=== PATIENT | male | born 1960 | race Caucasian/White ===

== ENCOUNTER 2018-06-11 21:29 | Emergency (ER) | payer OTHER ==
[~2018-06-11] VITALS: Ht 177.8 cm; Wt 79.4 kg
[~2018-06-11 21:29] MED LIST: ALBU90OI6 INH; ALLO300 PO; AMIT75 PO; CHLO25 PO; DOXY100 PO; HYDACE5 PO; LISI10 PO; NAPR500 PO; OMEP20ER PO; PARO20 PO; VERA240ERB PO
[2018-06-11 22:25] LABS: Alanine Aminotransfer (ALT/SGP 31 U/L (12-78); Albumin, Blood 3.9 g/dL (3.4-5.0); Alk Phos 129 U/L (50-136); Anion Gap 14 mmol/L (6-16); Aspartate Aminotrans (AST/SGOT 38 U/L (12-37); Bilirubin, Total 0.5 mg/dL (0.1-1.0); Blood Urea Nitrogen 7 mg/dL (8-24); Bun/Creatinine Ratio 9.5 (12.0-20.0); CO2, Blood 21 mmol/L (21-32); Calcium, Blood 8.4 mg/dL (8.5-10.1); Chloride, Blood 102 mmol/L (98-108); Creatinine, Blood 0.74 mg/dL (0.60-1.20); Ethanol (Alcohol), Blood, Med 135 mg/dL; Globulin, Blood 4.1 g/dL (2.2-4.0); Glomerular Filtration Rate >60 (60-); Glucose, Blood 88 mg/dL (70-99); Potassium, Blood 3.7 mmol/L (3.5-5.5); Sodium, Blood 137 mmol/L (136-145)
[2018-06-12] MEDS ORDERED: MORP15ER PO (13:53)
[2018-06-12] MEDS ORDERED: VICODIN 5-3001 EACH PO (13:54)
[2018-06-12] MEDS ORDERED: Mobic15 MG PO (17:11)
[2018-06-12] MEDS ORDERED: MOTION RELIEF25 MG PO (17:12)
[2018-06-12] MEDS ORDERED: METO25 PO (17:13)
[2018-06-13] MEDS ORDERED: Amitriptyline150 MG PO (16:39)
[2018-06-13] MEDS ORDERED: ACID REDUCER20 MG PO (16:39)
== END 2018-06-12 | disposition home or self-care (01) ==
LOC: ER 21:29
PROVIDERS: Emergency Medicine
DX: F10.129 Alcohol abuse with intoxication, unspecified (principal); S09.90XA Unspecified injury of head, initial encounter; F17.200 Nicotine dependence, unspecified, uncomplicated; Z88.8 Allergy status to other drugs, medicaments and biological substances; Z79.899 Other long term (current) drug therapy; Y90.6 Blood alcohol level of 120-199 mg/100 ml; W18.30XA Fall on same level, unspecified, initial encounter
CPT/HCPCS: 36415; 70450; 80053; 93005; 93010; 99284-25; G0480

== ENCOUNTER 2018-06-12 13:40 | Inpatient (IN) | payer OTHER ==
[~2018-06-12] VITALS: Ht 180.3 cm; Wt 80.3 kg
[2018-06-12] MEDS ORDERED: MORP15ER PO (13:53)
[2018-06-12] MEDS ORDERED: VICODIN 5-3001 EACH PO (13:54)
[2018-06-12 14:37] LABS: Alanine Aminotransfer (ALT/SGP 32 U/L (12-78); Albumin, Blood 4.1 g/dL (3.4-5.0); Alk Phos 128 U/L (50-136); Anion Gap 10 mmol/L (6-16); Aspartate Aminotrans (AST/SGOT 46 U/L (12-37); Bilirubin, Total 0.9 mg/dL (0.1-1.0); Blood Urea Nitrogen 11 mg/dL (8-24); Bun/Creatinine Ratio 14.2 (12.0-20.0); CO2, Blood 27 mmol/L (21-32); Calcium, Blood 8.8 mg/dL (8.5-10.1); Chloride, Blood 99 mmol/L (98-108); Creatinine, Blood 0.78 mg/dL (0.60-1.20); Ethanol (Alcohol), Blood, Med <3 mg/dL; Globulin, Blood 4.1 g/dL (2.2-4.0); Glomerular Filtration Rate >60 (60-); Glucose, Blood 97 mg/dL (70-99); Potassium, Blood 3.9 mmol/L (3.5-5.5); Sodium, Blood 136 mmol/L (136-145); Total Protein, Blood 8.2 g/dL (6.4-8.2)
[2018-06-12 14:54] LABS: BASOPHILS ABSOLUTE AUTO 0.04 K/mm3 (0.00-0.23); BASOPHILS PERCENT AUTO 0 % (0-2); EOSINOPHILS ABSOLUTE AUTO 0.01 K/mm3 (0.00-0.68); EOSINOPHILS PERCENT AUTO 0 % (0-6); Hematocrit 39.5 % (37.0-53.0); Hemoglobin 13.6 g/dL (13.5-17.5); IMMATURE GRAN ABSOLUTE AUTO 0.05 K/mm3 (0.00-0.10); IMMATURE GRAN PERCENT AUTO 1 % (0-1); LYMPHOCYTES ABSOLUTE AUTO 1.07 K/mm3 (0.84-5.20); LYMPHOCYTES PERCENT AUTO 10 % (21-46); MONOCYTES ABSOLUTE AUTO 1.16 K/mm3 (0.16-1.47); MONOCYTES PERCENT AUTO 11 % (4-13); Mean Corpuscular HGB 34.7 pg (26.0-34.0); Mean Corpuscular HGB Conc 34.4 g/dL (31.5-36.5); Mean Corpuscular Volume 101 fL (80-100); Mean Platelet Volume 9.8 fL (9.1-12.4); NEUTROPHILS ABSOLUTE AUTO 7.94 K/mm3 (1.96-9.15); NEUTROPHILS PERCENT AUTO 77 % (41-73); Platelet Count 130 K/mm3 (150-400); RDW Coefficient Variation 13.8 % (11.7-14.2); RDW Standard Deviation 51.1 fL (35.1-46.3); Red Blood Cell Count 3.92 M/mm3 (4.30-5.90); White Blood Cell Count 10.27 K/mm3 (4.00-11.30)
[2018-06-12 15:24] LABS: Creatine Kinase MB 7.5 ng/mL (0.0-3.6); Creatine Kinase MB Index 0.5 (0.0-4.0)
[2018-06-12] MEDS ORDERED: Mobic15 MG PO (17:11)
[2018-06-12] MEDS ORDERED: MOTION RELIEF25 MG PO (17:12)
[2018-06-12] MEDS ORDERED: METO25 PO (17:13)
[2018-06-12 19:09] LABS: Source, Urine Clean Catch
[2018-06-12 19:12] LABS: Appearance, Urine Clear (Clear); Bilirubin, Urine Neg (Neg); Blood, Urine 1+ (Neg); Color, Urine Yellow (P-Yellow); Glucose Qualitative, Urine Neg (Neg); Ketones, Urine 2+ (Neg); Leukocyte Esterase, Urine Neg (Neg); Nitrite, Urine Neg (Neg); Protein, Urine 1+ (Neg); Urobilinogen, Urine NORM (Normal)
[2018-06-12 19:27] LABS: U Amphetamine Screen Not Detected; U Barbituate Screen Not Detected; U Benzodiazapine Screen Not Detected; U Buprenorphine Screen Not Detected; U Cannabinoids Screen Not Detected; U Cocaine Screen Not Detected; U Methadone Screen Not Detected; U Methamphetamine Screen Not Detected; U Opiates Screen Not Detected; U Oxycodone Screen Not Detected; U Phencyclidine Screen Not Detected; U Propoxyphene Screen Not Detected
[2018-06-12 19:28] LABS: Bacteria Rare /hpf; Red Blood Cells, Urine 0-2 /hpf (0-2); Squamous Epithelial Cells Rare /hpf (Few); White Blood Cells, Urine 0-2 /hpf (0-5)
[2018-06-13 04:26] LABS: BASOPHILS ABSOLUTE AUTO 0.05 K/mm3 (0.00-0.23); BASOPHILS PERCENT AUTO 1 % (0-2); EOSINOPHILS ABSOLUTE AUTO 0.13 K/mm3 (0.00-0.68); EOSINOPHILS PERCENT AUTO 2 % (0-6); Hematocrit 38.4 % (37.0-53.0); Hemoglobin 13.1 g/dL (13.5-17.5); IMMATURE GRAN ABSOLUTE AUTO 0.03 K/mm3 (0.00-0.10); IMMATURE GRAN PERCENT AUTO 0 % (0-1); LYMPHOCYTES ABSOLUTE AUTO 2.23 K/mm3 (0.84-5.20); LYMPHOCYTES PERCENT AUTO 28 % (21-46); MONOCYTES PERCENT AUTO 11 % (4-13); Mean Corpuscular HGB 34.7 pg (26.0-34.0); Mean Corpuscular HGB Conc 34.1 g/dL (31.5-36.5); Mean Corpuscular Volume 102 fL (80-100); Mean Platelet Volume 9.7 fL (9.1-12.4); NEUTROPHILS ABSOLUTE AUTO 4.68 K/mm3 (1.96-9.15); NEUTROPHILS PERCENT AUTO 58 % (41-73); Platelet Count 128 K/mm3 (150-400); RDW Coefficient Variation 13.9 % (11.7-14.2); RDW Standard Deviation 52.6 fL (35.1-46.3); Red Blood Cell Count 3.78 M/mm3 (4.30-5.90); White Blood Cell Count 8.02 K/mm3 (4.00-11.30)
[2018-06-13 04:48] LABS: Anion Gap 8 mmol/L (6-16); Blood Urea Nitrogen 8 mg/dL (8-24); Bun/Creatinine Ratio 10.6 (12.0-20.0); CO2, Blood 27 mmol/L (21-32); Calcium, Blood 7.8 mg/dL (8.5-10.1); Chloride, Blood 104 mmol/L (98-108); Creatinine, Blood 0.76 mg/dL (0.60-1.20); Glomerular Filtration Rate >60 (60-); Glucose, Blood 95 mg/dL (70-99); Magnesium, Blood 2.1 mg/dL (1.6-2.4); Magnesium, Blood 2.2 mg/dL (1.6-2.4); Phosphorus, Blood 2.8 mg/dL (2.5-4.9); Potassium, Blood 3.5 mmol/L (3.5-5.5); Sodium, Blood 139 mmol/L (136-145); Troponin I 0.023 ng/mL (0.000-0.040)
[2018-06-13 04:50] LABS: Phosphorus, Blood 2.7 mg/dL (2.5-4.9); Thyroid Stimulating Hormone 0.907 uIU/mL (0.360-4.800)
[2018-06-13 05:02] LABS: Creatine Kinase MB 3.6 ng/mL (0.0-3.6); Creatine Kinase MB Index 0.4 (0.0-4.0)
[2018-06-13 16:10] LABS: BASOPHILS ABSOLUTE AUTO 0.04 K/mm3 (0.00-0.23); BASOPHILS PERCENT AUTO 0 % (0-2); EOSINOPHILS ABSOLUTE AUTO 0.14 K/mm3 (0.00-0.68); EOSINOPHILS PERCENT AUTO 2 % (0-6); Hematocrit 41.1 % (37.0-53.0); Hemoglobin 13.6 g/dL (13.5-17.5); IMMATURE GRAN ABSOLUTE AUTO 0.04 K/mm3 (0.00-0.10); IMMATURE GRAN PERCENT AUTO 0 % (0-1); LYMPHOCYTES ABSOLUTE AUTO 2.93 K/mm3 (0.84-5.20); LYMPHOCYTES PERCENT AUTO 32 % (21-46); MONOCYTES ABSOLUTE AUTO 0.87 K/mm3 (0.16-1.47); MONOCYTES PERCENT AUTO 10 % (4-13); Mean Corpuscular HGB 34.6 pg (26.0-34.0); Mean Corpuscular HGB Conc 33.1 g/dL (31.5-36.5); NEUTROPHILS ABSOLUTE AUTO 5.01 K/mm3 (1.96-9.15); NEUTROPHILS PERCENT AUTO 56 % (41-73); Platelet Count 143 K/mm3 (150-400); RDW Coefficient Variation 14.1 % (11.7-14.2); RDW Standard Deviation 54.6 fL (35.1-46.3); Red Blood Cell Count 3.93 M/mm3 (4.30-5.90); White Blood Cell Count 9.03 K/mm3 (4.00-11.30)
[2018-06-13 16:14] LABS: Mean Corpuscular Volume 105 fL (80-100)
[2018-06-13] MEDS ORDERED: Amitriptyline150 MG PO (16:39)
[2018-06-13] MEDS ORDERED: ACID REDUCER20 MG PO (16:39)
[2018-06-13 16:47] LABS: Creatine Kinase MB 2.6 ng/mL (0.0-3.6); Creatine Kinase MB Index 0.4 (0.0-4.0)
[2018-06-14 05:06] LABS: Anion Gap 10 mmol/L (6-16); Blood Urea Nitrogen 13 mg/dL (8-24); Bun/Creatinine Ratio 15.8 (12.0-20.0); CO2, Blood 24 mmol/L (21-32); Calcium, Blood 8.1 mg/dL (8.5-10.1); Chloride, Blood 105 mmol/L (98-108); Creatinine, Blood 0.82 mg/dL (0.60-1.20); Glomerular Filtration Rate >60 (60-); Glucose, Blood 89 mg/dL (70-99); Magnesium, Blood 1.9 mg/dL (1.6-2.4); Phosphorus, Blood 3.7 mg/dL (2.5-4.9); Potassium, Blood 3.8 mmol/L (3.5-5.5); Sodium, Blood 139 mmol/L (136-145)
== END 2018-06-16 19:01 | DRG 71 ==
LOC: ER 13:40 → PCU 13:41 → MEDS 17:04 → ICUW 18:47 → MEDS 06-13 11:08 → ICUW 06-13 13:57 → MEDS 06-13 16:29
PROVIDERS: Family Medicine; Physician Assistant
DX: G93.49 Other encephalopathy (principal); F10.231 Alcohol dependence with withdrawal delirium; M62.82 Rhabdomyolysis; I10 Essential (primary) hypertension; G47.00 Insomnia, unspecified; K21.9 Gastro-esophageal reflux disease without esophagitis; R53.81 Other malaise; F12.90 Cannabis use, unspecified, uncomplicated; W19.XXXA Unspecified fall, initial encounter; Z91.81 History of falling; Y92.239 Unspecified place in hospital as the place of occurrence of the external cause; F17.210 Nicotine dependence, cigarettes, uncomplicated
CPT/HCPCS: 36415; 51702; 70450; 80048; 80053; 81001; 82150; 82550; 82553; 83690; 83735; 84100; 84443; 84484; 85025; 90471; 90714; 93005; 93010; 94760; 96360; 96361; 97110; 97112; 97116; 97162; 97530; 99285-25; C9113; G0480; G8978; G8979; G8980; J0360; J2060; J3411; J3475; J3480; J7030; J7042

== ENCOUNTER 2018-11-30 12:03 | Emergency (ER) | payer OTHER ==
[~2018-11-30] VITALS: Ht 180.3 cm; Wt 79.4 kg
[~2018-11-30 12:03] MED LIST changes: +ACID REDUCER20 MG PO; +Amitriptyline150 MG PO; +B12; +METO25 PO; +MORP15ER PO; +MOTION RELIEF25 MG PO; +MULTI VITAMIN1 EACH PO; +Milk Of Ma400 MG/5 M PO; +Mobic15 MG PO; +VICODIN 5-3001 EACH PO
== END 2018-11-30 14:40 | disposition home or self-care (01) ==
LOC: ER 12:03
DX: H53.2 Diplopia (principal); I10 Essential (primary) hypertension; K21.9 Gastro-esophageal reflux disease without esophagitis; F17.210 Nicotine dependence, cigarettes, uncomplicated; Z87.828 Personal history of other (healed) physical injury and trauma; Z79.899 Other long term (current) drug therapy; Z88.5 Allergy status to narcotic agent
CPT/HCPCS: 70480; 99284-25

== ENCOUNTER 2019-02-03 13:34 | Emergency (ER) | payer OTHER ==
[~2019-02-03] VITALS: Ht 180.3 cm; Wt 83.9 kg
[2019-02-03 14:12] LABS: BASOPHILS ABSOLUTE AUTO 0.09 K/mm3 (0.00-0.23); BASOPHILS PERCENT AUTO 1 % (0-2); EOSINOPHILS ABSOLUTE AUTO 0.11 K/mm3 (0.00-0.68); EOSINOPHILS PERCENT AUTO 1 % (0-6); Hematocrit 43.8 % (37.0-53.0); Hemoglobin 15.5 g/dL (13.5-17.5); IMMATURE GRAN ABSOLUTE AUTO 0.05 K/mm3 (0.00-0.10); IMMATURE GRAN PERCENT AUTO 1 % (0-1); LYMPHOCYTES ABSOLUTE AUTO 2.33 K/mm3 (0.84-5.20); LYMPHOCYTES PERCENT AUTO 23 % (21-46); MONOCYTES ABSOLUTE AUTO 1.32 K/mm3 (0.16-1.47); MONOCYTES PERCENT AUTO 13 % (4-13); Mean Corpuscular HGB 34.4 pg (26.0-34.0); Mean Corpuscular HGB Conc 35.4 g/dL (31.5-36.5); Mean Corpuscular Volume 97 fL (80-100); Mean Platelet Volume 9.4 fL (9.1-12.4); NEUTROPHILS ABSOLUTE AUTO 6.25 K/mm3 (1.96-9.15); NEUTROPHILS PERCENT AUTO 62 % (41-73); Platelet Count 229 K/mm3 (150-400); RDW Coefficient Variation 12.6 % (11.7-14.2); RDW Standard Deviation 45.1 fL (35.1-46.3); White Blood Cell Count 10.15 K/mm3 (4.00-11.30)
[2019-02-03 14:37] LABS: Alanine Aminotransfer (ALT/SGP 35 U/L (12-78); Albumin, Blood 3.7 g/dL (3.4-5.0); Albumin/Globulin Ratio 0.9 (0.8-1.8); Alk Phos 105 U/L (50-136); Anion Gap 14 mmol/L (6-16); Aspartate Aminotrans (AST/SGOT 26 U/L (12-37); Bilirubin, Total 0.7 mg/dL (0.1-1.0); Blood Urea Nitrogen 5 mg/dL (8-24); CO2, Blood 21 mmol/L (21-32); Calcium, Blood 8.5 mg/dL (8.5-10.1); Chloride, Blood 96 mmol/L (98-108); Creatinine, Blood 1.01 mg/dL (0.60-1.20); Globulin, Blood 4.2 g/dL (2.2-4.0); Glomerular Filtration Rate >60 (60-); Glucose, Blood 94 mg/dL (70-99); Potassium, Blood 3.8 mmol/L (3.5-5.5); Sodium, Blood 131 mmol/L (136-145); Total Protein, Blood 7.9 g/dL (6.4-8.2)
[2019-02-03] MEDS ORDERED: Lopressor 25 mg25 MG PO (14:53)
[2019-02-03] MEDS ORDERED: Mobic15 MG PO (14:53)
== END 2019-02-03 16:57 | disposition home or self-care (01) ==
LOC: ER 13:34
PROVIDERS: Emergency Medicine
DX: R25.1 Tremor, unspecified (principal); F10.10 Alcohol abuse, uncomplicated; I10 Essential (primary) hypertension; K21.9 Gastro-esophageal reflux disease without esophagitis; F17.210 Nicotine dependence, cigarettes, uncomplicated; Z88.5 Allergy status to narcotic agent; Z79.899 Other long term (current) drug therapy
CPT/HCPCS: 36415; 80053; 85025; 93005; 93010; 96360; 96361; 99285-25; J7030

== ENCOUNTER 2019-08-11 11:53 | Emergency (ER) | payer OTHER ==
[~2019-08-11] VITALS: Ht 180.3 cm; Wt 81.7 kg
[~2019-08-11 11:53] MED LIST changes: +Lopressor 25 mg25 MG PO
== END 2019-08-11 13:14 | disposition home or self-care (01) ==
LOC: ER 11:53
DX: R55 Syncope and collapse (principal); F17.210 Nicotine dependence, cigarettes, uncomplicated; Z72.89 Other problems related to lifestyle
CPT/HCPCS: 82947; 93005; 93010; 99285-25

== ENCOUNTER 2019-10-15 12:33 | Emergency (ER) | payer OTHER ==
[~2019-10-15] VITALS: Ht 180.3 cm; Wt 81.7 kg
== END 2019-10-15 13:40 | disposition home or self-care (01) ==
LOC: ER 12:33
DX: S76.911A Strain of unspecified muscles, fascia and tendons at thigh level, right thigh, initial encounter (principal); S86.911A Strain of unspecified muscle(s) and tendon(s) at lower leg level, right leg, initial encounter; F17.210 Nicotine dependence, cigarettes, uncomplicated; X50.1XXA Overexertion from prolonged static or awkward postures, initial encounter
CPT/HCPCS: 73552; 99283-25

== ENCOUNTER 2020-01-07 17:14 | Inpatient (IN) | payer OTHER ==
[~2020-01-07] VITALS: Ht 180.3 cm; Wt 73.9 kg
[~2020-01-07 17:14] MED LIST changes: +B-121000 MC3 PO; -B12
[2020-01-07 18:10] LABS: Alanine Aminotransfer (ALT/SGP 31 U/L (12-78); Albumin, Blood 3.9 g/dL (3.4-5.0); Albumin/Globulin Ratio 0.8 (0.8-1.8); Alk Phos 135 U/L (50-136); Anion Gap 8 mmol/L (6-16); Aspartate Aminotrans (AST/SGOT 36 U/L (12-37); Bilirubin, Total 0.9 mg/dL (0.1-1.0); Blood Urea Nitrogen 5 mg/dL (8-24); Bun/Creatinine Ratio 6.4 (12.0-20.0); CO2, Blood 23 mmol/L (21-32); Calcium, Blood 9.5 mg/dL (8.5-10.1); Chloride, Blood 100 mmol/L (98-108); Creatinine, Blood 0.78 mg/dL (0.60-1.20); Ethanol (Alcohol), Blood, Med 20 mg/dL; Globulin, Blood 4.8 g/dL (2.2-4.0); Glomerular Filtration Rate >60 (60-); Glucose, Blood 77 mg/dL (70-99); Potassium, Blood 4.4 mmol/L (3.5-5.5); Sodium, Blood 131 mmol/L (136-145); Total Protein, Blood 8.7 g/dL (6.4-8.2)
[2020-01-07 19:09] LABS: BASOPHILS ABSOLUTE AUTO 0.07 K/mm3 (0.00-0.23); BASOPHILS PERCENT AUTO 1 % (0-2); EOSINOPHILS ABSOLUTE AUTO 0.08 K/mm3 (0.00-0.68); EOSINOPHILS PERCENT AUTO 1 % (0-6); Hematocrit 50.6 % (37.0-53.0); Hemoglobin 18.1 g/dL (13.5-17.5); IMMATURE GRAN ABSOLUTE AUTO 0.03 K/mm3 (0.00-0.10); IMMATURE GRAN PERCENT AUTO 0 % (0-1); LYMPHOCYTES ABSOLUTE AUTO 2.54 K/mm3 (0.84-5.20); LYMPHOCYTES PERCENT AUTO 25 % (21-46); MONOCYTES ABSOLUTE AUTO 0.74 K/mm3 (0.16-1.47); MONOCYTES PERCENT AUTO 7 % (4-13); Mean Corpuscular HGB 33.8 pg (26.0-34.0); Mean Corpuscular HGB Conc 35.8 g/dL (31.5-36.5); Mean Corpuscular Volume 94 fL (80-100); Mean Platelet Volume 9.8 fL (9.1-12.4); NEUTROPHILS ABSOLUTE AUTO 6.83 K/mm3 (1.96-9.15); NEUTROPHILS PERCENT AUTO 66 % (41-73); Platelet Count 172 K/mm3 (150-400); RDW Coefficient Variation 12.1 % (11.7-14.2); RDW Standard Deviation 42.6 fL (35.1-46.3); Red Blood Cell Count 5.36 M/mm3 (4.30-5.90); White Blood Cell Count 10.29 K/mm3 (4.00-11.30)
--- NOTE | 2020-01-07 22:45 | NUR ---
ADMIT NOTE PATIENT VERY AGITATED AND RESTLESS UPON ADMIT TO THE FLOOR. PATIENT VERY FIDGITY AND CONSTANTLY ATTEMPTING TO SIT UP AND SWING LEGS OVER THE EGE OF THE BED. PATIENT MEDICATED ACCORDINGLY. PATIENT SETTLED IN AND ORIENTED TO THE ROOM, UNIT, AND CALL LIGHT.
--- NOTE | 2020-01-07 23:24 | NUR ---
UPDATE NURSE PRACTIONER BRENNAN FRASER NOTIFIED OF ELEVATED BLOOD PRESSURE. NO NEW ORDERS RECEIVED.
--- NOTE | 2020-01-07 23:24 | NUR ---
UPDATE DR SANTORO NOTIFIED OF RASH ON PATIENT'S BACK. STATED HE WILL COME ASSESS RASH IN A LITTLE WHILE.
--- NOTE | 2020-01-07 23:55 | NUR ---
DR YVAN SNATORO IN TO ASSESS PATIENT'S RASH. ORDERS RECEIVED.
[2020-01-08 04:46] LABS: Alanine Aminotransfer (ALT/SGP 21 U/L (12-78); Albumin, Blood 3.1 g/dL (3.4-5.0); Albumin/Globulin Ratio 0.8 (0.8-1.8); Alk Phos 112 U/L (50-136); Anion Gap 9 mmol/L (6-16); Aspartate Aminotrans (AST/SGOT 17 U/L (12-37); Bilirubin, Total 0.9 mg/dL (0.1-1.0); Blood Urea Nitrogen 4 mg/dL (8-24); Bun/Creatinine Ratio 7.1 (12.0-20.0); CO2, Blood 25 mmol/L (21-32); Calcium, Blood 8.3 mg/dL (8.5-10.1); Chloride, Blood 103 mmol/L (98-108); Creatinine, Blood 0.56 mg/dL (0.60-1.20); Globulin, Blood 3.7 g/dL (2.2-4.0); Glomerular Filtration Rate >60 (60-); Glucose, Blood 128 mg/dL (70-99); Magnesium, Blood 2.4 mg/dL (1.6-2.4); Phosphorus, Blood 2.9 mg/dL (2.5-4.9); Potassium, Blood 3.4 mmol/L (3.5-5.5); Sodium, Blood 137 mmol/L (136-145); Total Protein, Blood 6.8 g/dL (6.4-8.2)
--- NOTE | 2020-01-08 05:37 | NUR ---
SHIFT SUMMARY PATIENT APPEARED TO SLEEP ON AND OFF THROUGHOUT THE REST OF THE NIGHT. PATIENT WILL PERIODICALLY BECOME VERY RESTLESS AND AGITATED WHILE ATTEMPTING TO SIT UP. PATIENT VERY FIDGTY WHEN AWAKE. PATIENT DIFFICULT TO UNDERSTAND WHEN SPEAKING. BED ALARM ON FOR SAFETY. PATIENT MEDICATED PER SHELLEYWA. PATIENT CURRENTLY APPEARS TO BE SLEEPING WELL. PATIENT MOVING SELF ABOUT IN THE BED. WILL CONTINUE TO MONITOR PATIENT AND REPORT TO ONCOMING RN.
--- NOTE | 2020-01-08 17:52 | NUR ---
SHIFT SUMMARY PT ALERT AND ORIENTED THIS AFTERNOON. VS STABLE. O2 SATS REMAIN ABOVE 90% ON RA. BP STABLE. HR NSR. PT DENIES ANY PAIN. PT REPOSITIONING HIMNSELF IN THE BED INDEPENDENTLY. MONITORING CIWA. ORDERS CHANGED TO MEDICAL STATUS THIS AFTERNOON. DR. ALMANZA NOTIFIED OF +BLOOD CULTURES AND NEW ORDERS PROVIDED. WILL CONTINUE TO MONITOR AND REPORT TO ONCOMING RN. CALL LIGHT IN REACH
--- NOTE | 2020-01-08 18:26 | NUR ---
PT IS ALERT AND ORIENTED TO SELF WITH SOME CONFUSION. PT IS TURNED Q 2 HRS. PT TURNS WELL IN BED BY SELF. PT IS MONITORED FOR ETOH WITHDRAWL, CIWA'S HAVE BEEN PERFORMED THROUGHOUT THE SHIFT. PT HAS A LOW CIWA SCORE OF 0 AT 1625. PT HAS RASH COVERING LOWER BACK AND BUTTOCKS. PT HAS NOT VOIDED URINE SINCE EARLY AFTERNOON, BLADDER SCAN SHOWED 370 ML OF URINE IN THE BLADDER. PT WAS UNABLE TO VOID INTO URINAL. PT IS CALM AND COOPERATIVE WITH CARE. CALL LIGHT IS WITHIN REACH.
[2020-01-09 04:28] LABS: Anion Gap 4 mmol/L (6-16); Blood Urea Nitrogen 7 mg/dL (8-24); Bun/Creatinine Ratio 9.7 (12.0-20.0); CO2, Blood 28 mmol/L (21-32); Calcium, Blood 8.4 mg/dL (8.5-10.1); Chloride, Blood 106 mmol/L (98-108); Creatinine, Blood 0.73 mg/dL (0.60-1.20); Glomerular Filtration Rate >60 (60-); Glucose, Blood 86 mg/dL (70-99); Phosphorus, Blood 3.6 mg/dL (2.5-4.9); Potassium, Blood 4.2 mmol/L (3.5-5.5); Sodium, Blood 138 mmol/L (136-145)
--- NOTE | 2020-01-09 05:40 | NUR ---
SHIFT SUMMARY / ASSUMED CARE AT 1900. VERY LETHARGIC AT THAT TIME AND WITH IN ABOUT 2 HR AND ALL THE REPOSITIONING AND ASSIST EXPECTED , MORE AWAKE AND GARBLED CONVERSING, FORMS WORDS BETTER AWAKE AND ANY SLURR SEEMS TO BE RELATED TO FEW TEETH IN MOUTH. ATTEMPTED A FEW TIMES THRU NOC TO USE STRICT ASPIRATION PRECAUTIONS AFTER GIVING PT A SANDWICH TO FEED SELF WHEN FULLY AWAKE ABOUT 2200, AND BEGAN TO CHOKE ON THIS FOOD ITEM. LATER FEEDING SOFT AND SIPS AND STILL NOTED THERE WAS SOME MILD COUGHING WHEN HOB HIGH FOWLERS AND SUPERVISION OR STAFF FEEDING PT. CALLS OUT MANY TIMES THRU NOC DEMANDING FOOD. MORE AWAKE BETWEEN DOZING AND MOSTSLY ORIENTED AND SPECIFIC ACCURATE DISCUSSION ABOUT SURROUNDINGS. ENC TO TURN SELF WITH Q 2 HR REPOSITIONING. VERY STIFF. NEURO CHECK AND NO NOTED DEFICIT IN EXTREMITIES . WILL SUGGEST SPEECH EVAL AND CLEARANCE. NO MD CALL W/ + BC PER DAY STAFF MD AWARE AND ABX STARTED. AWARE OF OF NEED TO VOID AND URINAL HELD BY STAFF PER PT REQUEST AND VOIDED 500 ML AT 0030. NO FURTHER URGE TO VOID AND NO BLADDER SCAN DONE AT THIS TIME, VERY LIMITED FLUIDS TONIGHT DUE TO SWALLOW PRECAUTIONS. CALM AND COOPERATIVE TONIGHT, JUST EASILY IRRITATED ABOUT NOT BEING ABLE TO EAT ON DEMAND, GOOD APPETITE APPARENT AND NO NAUSEA/ CIWA ABOUT 2-4. RASH MOSTLY AT LT HIP UNCHANGED THRU NOC NOTED PRIOR. MOSTLY ORIENTED CONT. DESIRES TO CALL FAMILY AND HAVE THEM PICK HIM UP . SOCIAL SERVICE NEEDS TO EVAL. NOT CHARTED EARLIER, BUT REPORTS MID CALF TO FEET ARE NUMB AND THIS IS NORMAL. SOMETIMES HIS ANTERIOR THIGHS ACHE. NO PAIN MEDS REQUIRED
--- NOTE | 2020-01-09 13:02 | NUR ---
SHIFT REPORT PT HAD SPEECH EVAL ON 01/08, DETERMINED THAT PT WAS IN NEED OF MECHANICAL SOFT DIET WITH FEW DISTRACTIONS DURING MEAL TIME FOR SWALLOW PRECAUTIONS. PT DENIES PAIN. PATIENT IS ALERT AND ORIENTED TO SELF WITH CONFUSION ON LOCATION. PT IS CALM AND COOPERATIVE WITH CARE. VS STABLE. PT IS MEDICAL STATUS WITH NO TELEMETRY. PT WAS TRANSFERRED TO MEDICAL FLOOR BY BED. REPORT WAS GIVEN TO MEDICAL FLOOR NURSE PRIOR TO TRANSFER.
[2020-01-09 16:47] LABS: Vancomycin, Trough 17.5 ug/mL (5.0-10.0)
--- NOTE | 2020-01-09 17:46 | NUR ---
PT TRANSFERRED FROM PCU. PLEASNT SINCE HERE. CONTINUES GARBLED SPERITU. SITTING STRAIGHT UP TO EAT MECH SOFT DIET. PLACED CONDOM CATH TO ASSIST IN NOT URINATING SELF TODAY. WILL SEE IF THIS HELPS SKIN. NO OTHER CONCERNS AT THIS TIME. BED IN LOW POSITION, CALL LITE IN REACH, BED ALARM ON FOR SAFETY
--- NOTE | 2020-01-09 18:30 | NUR ---
PAOLO COOLTZ CALLED, SISTER. PT SIGHNED AUTH FORM TO SPEAK TO HER. 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 IS DISABLED AT HOME. IS NOT AT THIS TIME. THIS IS FROM 25 YEARS AGO. WAS A AN[employer] MANY YEARS AGO. LAST MONTH FELL WHEN INTOXICATED, HIT HEAD TWO DIFFERENT OCCATIONS. STATES HAS DECREASED FUNCTIONALITY SINCE LAST MONTH. IS HEAVY DRINKER WHEN CAN GET SOMEONE TO GO GET FOR HIM. REPORTED TO DR ALMANZA.
--- NOTE | 2020-01-10 02:58 | NUR ---
Patients IV infiltrated left hand and IV removed. Ice pack placed for comfort and to decrease swelling. New IV started Right forearm on second attempt with Ultrasound vein finder. Good blood return noted at time of insertion. IV Vancomycin started at that time, and within 5 minutes, the new IV infiltrated. This was DC'd and Hospitalist was notified. Per yahir BHAGAT to restart IV medications in AM after new IV (or PICC) inserted.
--- NOTE | 2020-01-10 06:33 | NUR ---
SOCIAL WORK LECTURER SUMMARY Patient was awake until approx 0500. Very pleasant to deal and cooperative to work with, but very anxious and and determined to leave hospital today. Spoke with night hospitalist to inform her that Two of his IV accesses had infiltrated. MD agreed to hold his IV meds until he could have an IV started today. No complaints of pain with exception of left hand and right forearm (sites of Previous IV's)
--- NOTE | 2020-01-10 08:48 | NUR ---
MAXIPIME THE NEW ORDER MAXIPIME 2000MG Q12 WAS AKNOWLEDGED BY CROP OR GRAIN FARMER, EARLENE. THIS RN LOOKED OVER ORDER AND AKNOWLEDGED THE NEW ORDER FROM DR. ALMANZA AND IT IS A CHANGE IN FREQUENCY.
[2020-01-10 12:26] LABS: Source, Urine Clean Catch
[2020-01-10 12:29] LABS: Bilirubin, Urine Neg (Neg); Blood, Urine 1+ (Neg); Glucose Qualitative, Urine Neg (Neg); Ketones, Urine 1+ (Neg); Leukocyte Esterase, Urine Neg (Neg); Nitrite, Urine Neg (Neg); Protein, Urine Neg (Neg); Urobilinogen, Urine NORM (Normal)
[2020-01-10 12:35] LABS: Appearance, Urine Clear (Clear); Color, Urine Yellow (P-Yellow)
[2020-01-10 12:36] LABS: Bacteria Not Seen /hpf; Red Blood Cells, Urine 0-2 /hpf (0-2); Squamous Epithelial Cells Not Seen /hpf (Few); White Blood Cells, Urine 0-2 /hpf (0-5)
--- NOTE | 2020-01-10 16:20 | NUR ---
SHIFT SUMMARY PT AMBULATED THE HALLS WITH PT. ECHO PERFORMED THIS EVENING, AWAITING RESULTS. DR. HOUGH CONSULTED WITH PT THIS EVENING. GUARDIANSHIP LETTER PLACED IN PT CHART AND CAR TOP BOLTER WAS NOTIFIED. PT DENIES PAIN OR SOB THIS SHIFT. NO ACUTE CHANGES. PT IN BED, CALL LIGHT IN REACH.
[2020-01-10 17:01] LABS: Vancomycin, Trough 16.6 ug/mL (5.0-10.0)
[2020-01-11 05:36] LABS: Anion Gap 3 mmol/L (6-16); Blood Urea Nitrogen 9 mg/dL (8-24); Bun/Creatinine Ratio 13.1 (12.0-20.0); CO2, Blood 29 mmol/L (21-32); Calcium, Blood 8.5 mg/dL (8.5-10.1); Chloride, Blood 108 mmol/L (98-108); Creatinine, Blood 0.69 mg/dL (0.60-1.20); Glomerular Filtration Rate >60 (60-); Glucose, Blood 92 mg/dL (70-99); Sodium, Blood 140 mmol/L (136-145)
--- NOTE | 2020-01-11 07:04 | NUR ---
SHIFT SUMMARY PATIENT A&O X 3 OVERNIGHT. VERY PLEASANT TO WORK WITH, SLEPT WELL OVERNIGHT. IV PATENT AND FLUSHED. BED IN LOWEST POSITION WITH WHEELS LOCKED AND ALARM ON. CALL LIGHT WITHIN REACH. REPORT GIVEN TO ONCOMING RN.
--- NOTE | 2020-01-11 19:25 | NUR ---
alert and orintated to self, place and time confused/forgetful or willful, not aware of own limitations, tended to over estimate ability and forget own limitations, call light in reach, rm air, saline locked, shared bsr with noc nurse and pt
--- NOTE | 2020-01-12 04:59 | NUR ---
SHIFT SUMMARY PATIENT SLEPT WELL OVERNIGHT AND HAD MINIMAL NEEDS. IV PATENT AND FLUSHED. BED IN LOWEST POSITION WITH WHEELS LOCKED AND ALARM ON. CALL LIGHT WITHIN REACH. REPORT GIVEN TO ONCOMING RN.
--- NOTE | 2020-01-12 10:41 | NUR ---
ordered ct scan, radiology canceled order, nurse informed dr brenda stated reasons mri not acceptable, nurse called radiology, radiology asked that the dr's consult, rn called and asked that she contact the radiology .
--- NOTE | 2020-01-12 19:35 | NUR ---
alert orintated to self, location and date, confused at time, impulsive and anxious, no IV, rm air, call light in reach, mri completed, bsr shared with nurse and pt
--- NOTE | 2020-01-13 04:11 | NUR ---
KITCHEN CHEF SUMMARY Patient actually slept well from 2300 till 0400. minimal complaints of discomfort in neck and back (chronic) were resolved with ice to neck and APAP. Much more alert than previous nights. Still requires lots of cueing to remain on track during activities with staff.
[2020-01-13 08:42] LABS: BASOPHILS ABSOLUTE AUTO 0.07 K/mm3 (0.00-0.23); BASOPHILS PERCENT AUTO 1 % (0-2); EOSINOPHILS ABSOLUTE AUTO 0.15 K/mm3 (0.00-0.68); EOSINOPHILS PERCENT AUTO 2 % (0-6); Hematocrit 47.3 % (37.0-53.0); Hemoglobin 15.9 g/dL (13.5-17.5); IMMATURE GRAN ABSOLUTE AUTO 0.02 K/mm3 (0.00-0.10); IMMATURE GRAN PERCENT AUTO 0 % (0-1); LYMPHOCYTES ABSOLUTE AUTO 3.24 K/mm3 (0.84-5.20); LYMPHOCYTES PERCENT AUTO 47 % (21-46); MONOCYTES ABSOLUTE AUTO 0.57 K/mm3 (0.16-1.47); MONOCYTES PERCENT AUTO 8 % (4-13); Mean Corpuscular HGB 33.8 pg (26.0-34.0); Mean Corpuscular HGB Conc 33.6 g/dL (31.5-36.5); Mean Platelet Volume 10.2 fL (9.1-12.4); NEUTROPHILS PERCENT AUTO 42 % (41-73); Platelet Count 170 K/mm3 (150-400); RDW Coefficient Variation 12.5 % (11.7-14.2); RDW Standard Deviation 47.2 fL (35.1-46.3); White Blood Cell Count 6.95 K/mm3 (4.00-11.30)
[2020-01-13 08:51] LABS: Mean Corpuscular Volume 101 fL (80-100)
--- NOTE | 2020-01-13 18:23 | NUR ---
SHIFT SUMMARY PT AXO, PLEASANT AND COOPERATIVE WITH CARE. SLURRED SPEECH. EAGER TO GO HOME. VSS. PATIENT WORKED WITH PHYSICAL THERAPY, SEE NOTE. NO ACUTE CHANGES THIS SHIFT. BED IN LOW POSITION, CALL LIGHT WITHIN REACH. PT HAS BEEN ABLE TO TELL NURSE AND IT INFRASTRUCTURE PROJECT MANAGER WHEN HE IS INCONTINENT. PT DENIES PAIN, NV AND SOB.
--- NOTE | 2020-01-14 06:04 | NUR ---
ANIMAL SITTER SUMMARY Patient very unsteady on feet while making a pivot transfer to chair, one staff member on each side for patients safety as he was somewhat spastically lurching from front to back and right to left. Mentally, he was much easier to work with overnight, however, he does continue to require constant redirecting in order to safely eat or drink without choking. Slept well overnight getting about 6 hours of uninterrupted sleep. Unless patient much stronger and able to follow simple commands, This RN does not feel he would be safe to go home without 24/7 caregivers keeping an eye on Armaan.
--- NOTE | 2020-01-14 18:57 | NUR ---
SHIFT SUMMARY PT AXO, COOPERATIVE WITH CARE THOUGH IRRITABLE AND EAGER TO BE DISCHARGED HOME. PT STATED THAT HE WANTED "A JOINT" AND "DOPE" THIS SHIFT. PT REFUSES ANY CESSATION EDUCATION. VSS. NO ACUTE CHANGES THIS SHIFT. BED IN LOW POSITION, CALL LIGHT WITHIN REACH.
--- NOTE | 2020-01-15 03:51 | NUR ---
SUMMARY: PT A/O, SPECIFIES NEEDS AND CALLS APPROPRIATELY. HE'S USES URINAL APPROPRIATELY WHEN AWAKE BUT IS OCCASIONALLY INCONTINENCT W/ATTENDS CHANGED PRN. HE WASN'T OOB THIS SHIFT BUT REQUIRES 1-2P ASSIST R/T SPASTIC UNCOORDINATED MOVEMENTS. HE ALSO HAS SOME DIFFICULTY FOLLOWING INSTRUCTION SO REMINDERS REQUIRED TO STAY ON TRACK FOR MEALS AND ADL'S. PILLS WERE GIVEN ONE AT A TIME IN APPLESAUCE W/ASPIRATION PREC'S MAINTAINED. PT SLEPT OFF AND ON T/O NOCTE. HE REQUESTED PAIN MEDS FOR A SORE NECK BUT WAS ASLEEP WHEN THE MEDICATION WAS OFFERED AND DENIED NEEDING IT SINCE. NO ACUTE CHANGES, VSS/AFEBRILE. D/C PLANNING IN PROGRESS, PT LIKELY NEEDS CAREGIVERS FOR SAFE D/C HOME. EARLENE AND REPORT TO DAY RN.
--- NOTE | 2020-01-15 18:25 | NUR ---
SHIFT SUMMARY PT A/0, CALLS APPROPRIATELY AND IS ABLE TO MAKE NEEDS KNOWN. PT USES URINAL. WALKED IN WALLS WITH PT. PT IS A 1 SBA. GAVE MEDICATION ONE AT A TIME WITH APPLE SAUCE. PATIENT KNOWS NOT TO DRINK WITH STRAWS. PATIENT WILL OCCASIONALY HAVE UNCOORDINATED MOVEMENTS IN BED AND TRANSFERING. PT DID NOT COMPLAIN OF N/V/PAIN/SOB. NO NEW CHANGES OR CONCERNS.
--- NOTE | 2020-01-16 06:44 | NUR ---
01/16/20 0615 PT AWAKE AND REQUESTING FOOD AND DRINKS. SNACKS GIVEN UNTIL BREAKFAST TIME. PT BECAME ANGRY THIS AM WHEN AWAKENED FOR VITALS. JUST WANTED TO SLEEP. VITALS STABLE. VOIDED IN URINAL. UNEVENTFUL NIGHT.
--- NOTE | 2020-01-16 06:48 | NUR ---
01/16/20 0620 PT AWAKENED FOR REPOSITIONING AND BRIEF CHECK. JOKING AND STATES HE FEELS BETTER THIS AM. DENIES PAIN OR SOB THIS AM. VITALS STABLE. VOIDED TWICE IN URINAL. PT DOES HAVE SOME MEMORY ISSUES WITH MEDS AND MEDICAL HISTORY. RN SPOKE THIS AM WITH CAREGIVER, NOEMÍ, AND UPDATED HIM ON PT STATUS. HE SAYS HE WAS TESTED FOR COVID AT AND WAS NEGATIVE. ALSO HE STATES PT HAS NOT BEEN COOPERATIVE WITH KEEPING LEGS/FEET ELEVATED TO DECREASE SWELLING AT HOME. PT HAS HAD BLE ELEVATED ON 2 PILLOWS THIS SHIFT. SEE PICTURES.
[2020-01-16] MEDS ORDERED: GABA300 PO (12:34)
[2020-01-16] MEDS ORDERED: ACET325 PO (12:34)
[2020-01-16] MEDS ORDERED: B-1100 M1 PO (12:34)
--- NOTE | 2020-01-16 15:34 | NUR ---
PATIENT DISCHARGED TO [facility] VIA W/C VAN. HAD NO IV SITE.
== END 2020-01-16 13:31 | DRG 896 ==
LOC: ER 17:14 → PCU 22:16 → MEDS 22:24 → PCU 22:24 → MEDS 01-09 12:20 → ENPENDDIS 01-16 11:40 → MEDS 01-16 13:31
PROVIDERS: Emergency Medicine; Internal Medicine; Pharmacist; Physician Assistant; ADMIT Internal Medicine
DX: F10.231 Alcohol dependence with withdrawal delirium (principal); G92 Toxic encephalopathy; E87.1 Hypo-osmolality and hyponatremia; E87.2 Acidosis; G72.1 Alcoholic myopathy; E51.2 Wernicke's encephalopathy; I10 Essential (primary) hypertension; K21.9 Gastro-esophageal reflux disease without esophagitis; F17.210 Nicotine dependence, cigarettes, uncomplicated; Y90.1 Blood alcohol level of 20-39 mg/100 ml; E86.0 Dehydration; R47.1 Dysarthria and anarthria; W19.XXXA Unspecified fall, initial encounter; Y92.9 Unspecified place or not applicable
CPT/HCPCS: 36415; 51798; 70450; 71045; 72156; 80048; 80053; 80202; 81001; 82607; 82746; 82947; 83605; 83735; 84100; 84145; 84425; 85025; 85651; 87040; 87077; 87186; 92523; 92526; 92610; 93005; 93010; 93306; 96361; 96365; 96375; 96376; 97110; 97112; 97163; 97166; 97530; 97535; 99285-25; A9270; A9270-GY; A9577; C9113; G0480; J0692; J1200; J1650; J2060; J3370; J3411; J3475; J3480; J7042; J7050; J7120

== ENCOUNTER 2020-10-16 19:55 | Inpatient (IN) | payer OTHER ==
[~2020-10-16] VITALS: Ht 170.2 cm; Wt 70.2 kg
[~2020-10-16 19:55] MED LIST changes: +ACET325 PO; +B-1100 M1 PO; +GABA300 PO
[2020-10-16 20:18] LABS: BASOPHILS ABSOLUTE AUTO 0.04 K/mm3 (0.00-0.23); BASOPHILS PERCENT AUTO 0 % (0-2); EOSINOPHILS ABSOLUTE AUTO 0.01 K/mm3 (0.00-0.68); EOSINOPHILS PERCENT AUTO 0 % (0-6); Hematocrit 47.9 % (37.0-53.0); Hemoglobin 16.4 g/dL (13.5-17.5); IMMATURE GRAN ABSOLUTE AUTO 0.06 K/mm3 (0.00-0.10); IMMATURE GRAN PERCENT AUTO 1 % (0-1); LYMPHOCYTES ABSOLUTE AUTO 1.94 K/mm3 (0.84-5.20); LYMPHOCYTES PERCENT AUTO 15 % (21-46); MONOCYTES ABSOLUTE AUTO 0.52 K/mm3 (0.16-1.47); MONOCYTES PERCENT AUTO 4 % (4-13); Mean Corpuscular HGB 33.8 pg (26.0-34.0); Mean Corpuscular HGB Conc 34.2 g/dL (31.5-36.5); Mean Corpuscular Volume 99 fL (80-100); Mean Platelet Volume 9.5 fL (9.1-12.4); NEUTROPHILS PERCENT AUTO 80 % (41-73); Platelet Count 212 K/mm3 (150-400); RDW Coefficient Variation 12.9 % (11.7-14.2); RDW Standard Deviation 47.3 fL (35.1-46.3); Red Blood Cell Count 4.85 M/mm3 (4.30-5.90); White Blood Cell Count 12.87 K/mm3 (4.00-11.30)
[2020-10-16 20:38] LABS: Alanine Aminotransfer (ALT/SGP 21 U/L (12-78); Albumin, Blood 4.2 g/dL (3.4-5.0); Alk Phos 154 U/L (50-136); Anion Gap 6 mmol/L (6-16); Aspartate Aminotrans (AST/SGOT 14 U/L (12-37); Bilirubin, Total 0.3 mg/dL (0.1-1.0); Blood Urea Nitrogen 19 mg/dL (8-24); Bun/Creatinine Ratio 21.2 (12.0-20.0); CO2, Blood 27 mmol/L (21-32); Calcium, Blood 9.2 mg/dL (8.5-10.1); Chloride, Blood 103 mmol/L (98-108); Ethanol (Alcohol), Blood, Med <3 mg/dL; Globulin, Blood 4.1 g/dL (2.2-4.0); Glomerular Filtration Rate >60 (60-); Glucose, Blood 138 mg/dL (70-99); Potassium, Blood 4.6 mmol/L (3.5-5.5); Salicylate 4.2 mg/dL (2.8-20.0); Sodium, Blood 136 mmol/L (136-145); Total Protein, Blood 8.3 g/dL (6.4-8.2)
[2020-10-16 20:41] LABS: Acetaminophen, Random <2.0 ug/mL (10.0-30.0)
[2020-10-16] MEDS ORDERED: MELO7.5 PO (20:42)
[2020-10-16 20:45] LABS: International Normalized Ratio 1.02; Prothrombin Time Results 10.9 Sec (9.7-11.5)
[2020-10-16 20:50] LABS: Magnesium, Blood 1.9 mg/dL (1.6-2.4)
[2020-10-16 21:13] LABS: Source, Urine Clean Catch
[2020-10-16 21:14] LABS: Bilirubin, Urine Neg (Neg); Blood, Urine 2+ (Neg); Glucose Qualitative, Urine Neg (Neg); Ketones, Urine Neg (Neg); Leukocyte Esterase, Urine 1+ (Neg); Nitrite, Urine Neg (Neg); Protein, Urine 1+ (Neg); Specific Gravity, Urine 1.025 (1.003-1.022); Urobilinogen, Urine NORM (Normal)
[2020-10-16 21:30] LABS: PCO2 Arterial 46.4 mmHg (35-45); PO2 Arterial 99.7 mmHg (80-100); pH Blood Arterial 7.34 (7.35-7.45)
[2020-10-16 21:40] LABS: U Amphetamine Screen DETECTED; U Methamphetamine Screen DETECTED
[2020-10-16 21:41] LABS: U Barbituate Screen Not Detected; U Benzodiazapine Screen Not Detected; U Buprenorphine Screen Not Detected; U Cannabinoids Screen Not Detected; U Cocaine Screen Not Detected; U Methadone Screen Not Detected; U Opiates Screen Not Detected; U Oxycodone Screen Not Detected; U Phencyclidine Screen Not Detected; U Propoxyphene Screen Not Detected
[2020-10-16 21:43] LABS: Appearance, Urine Clear (Clear); Color, Urine Yellow (P-Yellow)
[2020-10-16 21:44] LABS: Bacteria Not Seen /hpf; Mucus Light (0-Heavy); Squamous Epithelial Cells Rare /hpf (Few); White Blood Cells, Urine 0-2 /hpf (0-5)
--- NOTE | 2020-10-17 01:30 | NUR ---
ARRIVAL TO ICU 6/INTUBATION PT ARRIVED TO ICU 6 VIA ED BED AT 2247. PT UNRESPONSIVE TO VERBAL STIMULI AND MINIMAL REACTION TO PAINFUL STIMULI. PT GAG AND COUGH VERY WEAK AND PT NOT CLEARING SECREATIONS. BRENNAN FRASER DECIDED TO HAVE PT INTUBATED. DURING INTUBATION 20MG ETOMIDATE AND 200MG SUCCINYLCHOLINE PUSHED AT 2342; 8.0 ETT INSERTED AT 2343, 25CM AT THE GUMS; VENT SETTINGS AC 16, TV 450, PEEP 5, FIO2 30%; MODERATE AMOUNT OF THICK YELLOW/WHITE SECREATIONS SUCTIONED VIA ETT; CHEST X-RAY PERFORMED AFTER INTUBATION, ETT PLACEMENT VARIFIED BY BRENNAN FRASER. AFIBRILE. HR 90-110. SBP 180'S; PRN HYDROLOZINE GIVEN, SBP NOW 100-110. OG TUBE INSERTED BEFORE CHEST X-RAY, OG ADVANCED 15 CM AFTER CHEST XRAY PER BRENNAN FRASER INSTRUCTION, OG NOW CLAMPED. CORDON IN PLACE AND DRAINING TO GRAVITY. PT HAS SLIGHT SWELLING AND REDNESS TO AREA ABOVE RT EYE. NEW IV PLACED IN RT FOREARM BY ANA ROSA WHYTE. SODIUM BICARB, THIAMINE BANANA BAG INFUSING, PRECEDEX INFUSING AT 0.1MCG/KG/HR, SEE TITRATION FLOWSHEET. SEE ADMISSION ASSESSMENT FOR FULL ASSESSMENT.
[2020-10-17 02:17] LABS: pH Blood Arterial 7.52 (7.35-7.45)
[2020-10-17 02:18] LABS: PCO2 Arterial 39.7 mmHg (35-45); PO2 Arterial 87.3 mmHg (80-100)
[2020-10-17 03:52] LABS: BASOPHILS ABSOLUTE AUTO 0.04 K/mm3 (0.00-0.23); BASOPHILS PERCENT AUTO 0 % (0-2); EOSINOPHILS ABSOLUTE AUTO 0.07 K/mm3 (0.00-0.68); EOSINOPHILS PERCENT AUTO 1 % (0-6); Hematocrit 40.6 % (37.0-53.0); Hemoglobin 13.8 g/dL (13.5-17.5); IMMATURE GRAN ABSOLUTE AUTO 0.04 K/mm3 (0.00-0.10); IMMATURE GRAN PERCENT AUTO 0 % (0-1); LYMPHOCYTES ABSOLUTE AUTO 3.41 K/mm3 (0.84-5.20); LYMPHOCYTES PERCENT AUTO 24 % (21-46); MONOCYTES ABSOLUTE AUTO 1.01 K/mm3 (0.16-1.47); MONOCYTES PERCENT AUTO 7 % (4-13); Mean Corpuscular HGB 32.6 pg (26.0-34.0); Mean Corpuscular Volume 96 fL (80-100); Mean Platelet Volume 9.8 fL (9.1-12.4); NEUTROPHILS ABSOLUTE AUTO 9.54 K/mm3 (1.96-9.15); NEUTROPHILS PERCENT AUTO 68 % (41-73); Platelet Count 179 K/mm3 (150-400); RDW Coefficient Variation 12.8 % (11.7-14.2); RDW Standard Deviation 44.9 fL (35.1-46.3); Red Blood Cell Count 4.23 M/mm3 (4.30-5.90); White Blood Cell Count 14.11 K/mm3 (4.00-11.30)
[2020-10-17 04:15] LABS: Alanine Aminotransfer (ALT/SGP 14 U/L (12-78); Alk Phos 113 U/L (50-136); Anion Gap 6 mmol/L (6-16); Aspartate Aminotrans (AST/SGOT 7 U/L (12-37); Bilirubin, Total 0.4 mg/dL (0.1-1.0); Blood Urea Nitrogen 14 mg/dL (8-24); Bun/Creatinine Ratio 18.6 (12.0-20.0); CO2, Blood 31 mmol/L (21-32); Calcium, Blood 7.7 mg/dL (8.5-10.1); Chloride, Blood 105 mmol/L (98-108); Creatinine, Blood 0.75 mg/dL (0.60-1.20); Glomerular Filtration Rate >60 (60-); Glucose, Blood 139 mg/dL (70-99); Magnesium, Blood 2.5 mg/dL (1.6-2.4); Phosphorus, Blood 2.4 mg/dL (2.5-4.9); Potassium, Blood 3.2 mmol/L (3.5-5.5); Sodium, Blood 142 mmol/L (136-145)
[2020-10-17 04:38] LABS: Albumin/Globulin Ratio 1.1 (0.8-1.8); Globulin, Blood 2.8 g/dL (2.2-4.0)
[2020-10-17 04:40] LABS: Total Protein, Blood 5.8 g/dL (6.4-8.2)
--- NOTE | 2020-10-17 06:28 | NUR ---
END OF SHIFT SUMMARY PT RESPONSIVE TO PAINFUL STIMULI, GAG AND COUGH WEAK BUT PRESENT. PRN ATIVAN GIVEN ONCE DUE TO PT PULLING AT RESTRAINTS AND COUGHING AGENST VENT. PT DOES MOVE RT SIDE AND HAND MORE FREQUENTLY THAN LT. VENT SETTINGS 12, TV 450, PEEP 5, FIO2 30%; THICK YELLOW SECREATIONS SUCTIONED VIA ETT. HR 80-110, SBP 80-180, MAP >65. OG CLAMPED. CORDON PATENT AND DRAINING TO GRAVITY. 12 LEAD EKG COMPLETED. PRECEDEX INFUSING AT 0.2MCG/KG/HR. WILL REPORT TO AM RN WHEN AVAILABLE.
--- NOTE | 2020-10-17 12:14 | NUR ---
REASSESSMENT PT REMAINS INTUBATED AND ON LIGHT SEDATION THIS MORNING. WITH SEDATION ON PT APPEARS COMFORTABLE AT REST, BUT TURNING, ORAL CARE, OR ANY TACTILE STIMULI PT BECOMES AGITATED - PULLING ON THE RESTRAINTS, TRYING TO SIT UP, BITING ON THE TUBE. PT HAS NOT BEEN FOLLOWING COMMANDS DURING THESE TIMES. HE SETTLES BACK DOWN AFTER ABOUT 5 MINUTES USUALLY, BUT HAS REQUIRED PRN FENTANYL TWICE TO SETTLE BACK DOWN AND APPEAR COMFORTABLE. HE IS MOVING BOTH HIS ARMS. PUPILS ARE A LITTLE SLUGGISH. HE IS SR, BP STABLE. LUNGS CLEAR, SM AMT OF WHITE SECRETIONS SUCTION VIA ETT. SPOKE WITH PT'S SISTER AND PROVIDED HER WITH UPDATE. SHE PROVIDED PHONE NUMBER FOR PT'S SON WHO LIVES IN [facility]. NUMBER PLACED ON CHART. CONTINUING TO MONITOR.
--- NOTE | 2020-10-17 17:07 | NUR ---
SHIFT SUMMARY PT REMAINS SEDATED AND ON THE VENTILATOR. SEDATION SWITCHED TO PROPOFOL THIS AFTERNOON AFTER PT GOT AGITATED, TRIED TO PULL OUT HIS ETT, AND TRIED CLIMBING OUT OF BED DESPITE PRECEDEX INFUSION. PT WAS NOT REDIRECTABLE AT ALL. AFTER THAT EPISODE DR. ROLLE GAVE ORDERS TO SKIP AFTERNOON SEDATION VACATION AND SWITCH TO PROPOFOL. PT IS TOLERATING INFUSION WELL. HE IS MOVING ALL EXTREMITIES. LUNGS ARE CLEAR. SR WITH FIRST DEGREE AVB, BP STABLE. SPOKE WITH PT'S SISTER THIS AFTERNOON AND PROVIDED ANOTHER UPDATE. CONTINUING TO MONITOR.
--- NOTE | 2020-10-17 21:31 | NUR ---
ASSUMED CARE AT 1900 PT LAYING IN BED INTUBATED WITH VENT SETTINGS AC 12, TV 450, PEEP 5, FIO2 30%. SMALL TO MODERATE AMOUNT OF THICK SECREATIONS SUCTIONED VIA ETT AND ORALLY. PT IS REACTIVE TO PAINFUL STIMULI AND ORAL CARE. PT WILL START TO PULL ON RESTRAINTS, REACH FOR ETT, AND COUGH AGAINST VENT; PRN ATIVAN AVAILABLE AND GIVEN, PT NOW CALM. PROPOFOL INFUSING AT 20MCG/KG/MIN. NS INFUSING AT 75ML/HR. CIWA 13. AFIBRILE. HR 70-80'S. SBP 80-120, MAP >65. OG CLAMPED. CORDON IN PLACE AND DRAINING TO GRAVITY. SWELLING AND REDNESS ABOVE RT EYE LESS THAN PREVIOUS DAY. SEE SHIFT ASSESSMENT FOR FULL ASSESSMENT.
[2020-10-18 04:08] LABS: BASOPHILS ABSOLUTE AUTO 0.03 K/mm3 (0.00-0.23); BASOPHILS PERCENT AUTO 0 % (0-2); EOSINOPHILS ABSOLUTE AUTO 0.24 K/mm3 (0.00-0.68); EOSINOPHILS PERCENT AUTO 3 % (0-6); Hematocrit 35.7 % (37.0-53.0); Hemoglobin 12.1 g/dL (13.5-17.5); IMMATURE GRAN ABSOLUTE AUTO 0.04 K/mm3 (0.00-0.10); IMMATURE GRAN PERCENT AUTO 0 % (0-1); LYMPHOCYTES ABSOLUTE AUTO 2.57 K/mm3 (0.84-5.20); LYMPHOCYTES PERCENT AUTO 27 % (21-46); MONOCYTES ABSOLUTE AUTO 0.55 K/mm3 (0.16-1.47); MONOCYTES PERCENT AUTO 6 % (4-13); Mean Corpuscular HGB 33.2 pg (26.0-34.0); Mean Corpuscular HGB Conc 33.9 g/dL (31.5-36.5); Mean Corpuscular Volume 98 fL (80-100); Mean Platelet Volume 10.2 fL (9.1-12.4); NEUTROPHILS ABSOLUTE AUTO 6.02 K/mm3 (1.96-9.15); NEUTROPHILS PERCENT AUTO 64 % (41-73); Platelet Count 153 K/mm3 (150-400); RDW Coefficient Variation 13.1 % (11.7-14.2); RDW Standard Deviation 47.1 fL (35.1-46.3); Red Blood Cell Count 3.64 M/mm3 (4.30-5.90); White Blood Cell Count 9.45 K/mm3 (4.00-11.30)
[2020-10-18 04:25] LABS: Anion Gap 4 mmol/L (6-16); Blood Urea Nitrogen 9 mg/dL (8-24); Bun/Creatinine Ratio 9.2 (12.0-20.0); CO2, Blood 29 mmol/L (21-32); Calcium, Blood 7.7 mg/dL (8.5-10.1); Chloride, Blood 112 mmol/L (98-108); Creatinine, Blood 0.97 mg/dL (0.60-1.20); Glomerular Filtration Rate >60 (60-); Glucose, Blood 81 mg/dL (70-99); Magnesium, Blood 2.5 mg/dL (1.6-2.4); Phosphorus, Blood 3.3 mg/dL (2.5-4.9); Potassium, Blood 3.5 mmol/L (3.5-5.5); Sodium, Blood 145 mmol/L (136-145)
[2020-10-18 05:28] LABS: PCO2 Arterial 39.1 mmHg (35-45); PO2 Arterial 97.8 mmHg (80-100); pH Blood Arterial 7.46 (7.35-7.45)
--- NOTE | 2020-10-18 06:12 | NUR ---
END OF SHIFT SUMMARY PT CONT TO BE INTUABTED WITH VENT SETTINGS AC 12, TV 450, PEEP 5, FIO2 30; SMALL AMOUNT OF THICK SECREATIONS SUCTIONED FROM ETT; SBT ATTEMPTED THIS AM AND NOT SUCCESSFUL, SEE RT NOTE. PT IS RESPONSIVE TO PAINFUL STIMULI AND HAS EPISODES OF RESTLESSNESS AND AGITATION WHERE PT IS PULLING AT RESTRAINTS, REACHING FOR ETT, AND COUGHING AGAINST VENT; PT IS NOT REDIRECTABLE DURING THESE TIMES; PRN ATIVAN GIVEN AND HELPFUL; CIWA'S 5-15; PROPOFOL INFUSING AT 30MCG/KG/MIN. AFIBRILE. HR 60-80'S. SBP 80-140'S; MAP >65. OG CLAMPED. CORDON IN PLACE AND DRAINING TO GRAVITY. WILL REPORT TO AM RN WHEN AVAILABLE.
--- NOTE | 2020-10-18 13:00 | NUR ---
PT INTUBATED AND SEDATED WITH PROPOFOL. PT GRIMACES AND PULLS AWAY FROM PAINFUL STIMULUS. PRECEDEX STARTED TO HELP MANAGE ANY WITHDRAWL SYMPTOMS AND DECREASING PROPOFOL. TUBE FEEDING STARTED AT 15ML/HR. PLAN IS TO KEEP HIM INTUBATED TODAY AND REACCESS TOMORROW. ANY TIME SEDATION IS TURNED DOWN PT STARTS COUGHING AND DOING SITUPS IN THE BED REACHING FOR THE ETT. NO OTHER CHANGES.
--- NOTE | 2020-10-18 18:35 | NUR ---
SUMMARY PT REMAINS INTUBATED. SEDATED WITH PROPOFOL AND PRECEDEX. TRYING TO COME DOWN ON PROPOFOL AND USE MORE PRECEDEX. PT WILL FOLLOW SIMPLE COMMANDS TO SQUEEZE HANDS AND MOVE FEET. PT CAN SIT UP IN BED AND WILL REACH FOR ETT. STARTED ON TUBE FEED TODAY. NO OTHER CHANGES THIS SHIFT.
--- NOTE | 2020-10-18 20:05 | NUR ---
SHIFT ASSESSMENT REPORT RECV'D FROM ISABELL RAM. PT INTUBATED AND SEDATED. PROPOFOL @ 10MCG/KG/HR AND PRECEDEX 0.5MCG/KG/HR. PT TOLERATING VENTILATOR AT THIS TIME c O2 SATS >95%. TF TITRATED UP TO 25ML/HR, NO RESIDUALS AT TIME OF TITRATION. TEMP CORDON CATH PATENT, DRAINING TO GRAVITY. DURING TURNS AND ORAL CARE PT STARTS COUGHING AND PULLING AT RESTRAINTS BUT CALMS DOWN QUICKLY. WILL CONTINUE TO MONITOR.
[2020-10-19 03:52] LABS: BASOPHILS ABSOLUTE AUTO 0.03 K/mm3 (0.00-0.23); BASOPHILS PERCENT AUTO 0 % (0-2); EOSINOPHILS ABSOLUTE AUTO 0.24 K/mm3 (0.00-0.68); EOSINOPHILS PERCENT AUTO 3 % (0-6); Hemoglobin 12.5 g/dL (13.5-17.5); IMMATURE GRAN ABSOLUTE AUTO 0.03 K/mm3 (0.00-0.10); IMMATURE GRAN PERCENT AUTO 0 % (0-1); LYMPHOCYTES ABSOLUTE AUTO 2.61 K/mm3 (0.84-5.20); LYMPHOCYTES PERCENT AUTO 35 % (21-46); MONOCYTES ABSOLUTE AUTO 0.65 K/mm3 (0.16-1.47); MONOCYTES PERCENT AUTO 9 % (4-13); Mean Corpuscular HGB 33.2 pg (26.0-34.0); Mean Corpuscular HGB Conc 33.8 g/dL (31.5-36.5); Mean Corpuscular Volume 98 fL (80-100); Mean Platelet Volume 9.9 fL (9.1-12.4); NEUTROPHILS ABSOLUTE AUTO 3.87 K/mm3 (1.96-9.15); NEUTROPHILS PERCENT AUTO 52 % (41-73); Platelet Count 144 K/mm3 (150-400); RDW Coefficient Variation 13.1 % (11.7-14.2); RDW Standard Deviation 46.9 fL (35.1-46.3); Red Blood Cell Count 3.77 M/mm3 (4.30-5.90); White Blood Cell Count 7.43 K/mm3 (4.00-11.30)
[2020-10-19 04:10] LABS: Anion Gap 6 mmol/L (6-16); Blood Urea Nitrogen 10 mg/dL (8-24); Bun/Creatinine Ratio 11.1 (12.0-20.0); CO2, Blood 26 mmol/L (21-32); Calcium, Blood 7.6 mg/dL (8.5-10.1); Chloride, Blood 113 mmol/L (98-108); Glomerular Filtration Rate >60 (60-); Glucose, Blood 109 mg/dL (70-99); Magnesium, Blood 2.5 mg/dL (1.6-2.4); Phosphorus, Blood 3.1 mg/dL (2.5-4.9); Potassium, Blood 3.7 mmol/L (3.5-5.5); Sodium, Blood 145 mmol/L (136-145)
--- NOTE | 2020-10-19 05:51 | NUR ---
SHIFT SUMMARY PT REMAINS INTUBATED AND SEDATED. ATTEMPTED TO TITRATE PROPOFOL DOWN TO 5MCG/KG/MIN BUT PT BECAME AGITATED, COUGHING FREQUENTLY, AND PULLING HARD ON RESTRAINTS. CURRENTLY PRECEDEX IS @ 0.4MCG/KG/HR AND PROPOFOL @ 10MCG/KG/MIN. NO CHANGES IN VENT SETTINGS. TF @ GOAL RATE. NO OTHER CHANGES OR CONCERNS TO NOTE. WILL CONTINUE TO MONITOR. REPORT TO BE GIVEN TO ONCOMING NURSE.
--- NOTE | 2020-10-19 13:05 | NUR ---
PT DID WELL ON SEDATION VACATION AND SBT. EXTUBATED TO 3L NC AT 1245. NO SIGN OF DISTRESS. PT IS FOLLOWING COMMANDS AND CALM.
--- NOTE | 2020-10-19 14:31 | NUR ---
PT AWAKE. UNABLE TO STATE WHERE HE IS OR DATE. SAYS "CLOSE TO SEPTEMBER". SPEECH IS SLURRED. HE IS CONSTANTLY FIDGETING WITH LINES AND REMOVING THEM DESPITE REDIRECTION. WHEN ASKED IF HE DRINKS ALCOHOL HE SAYS "A COUPLE SHOTS A DAY", THEN A LITTLE LATER HE SAID "MAYBE MORE, DO YOU HAVE SOME?". RESTARTED PRECEDEX PER DR. SIMEON. WANTS TO LIMIT ATIVAN IF POSSIBLE.
--- NOTE | 2020-10-19 18:44 | NUR ---
SUMMARY PT WAS EXTUBATED AT 1245 TO 3L NC. PT IS ON PRECEDEX GTT FOR ETOH WITHDRAWL SYMPTOMS. PT GETS AGITATED AND WILL PULL AT LINES AND LINENS CONSTANTLY. GAVE ONE DOSE OF ATIVAN WHEN PT WAS GETTING REALLY AGITATED ABOUT NOT GETTING TO LEAVE. PT IS ORIENTED TO SELF. WILL ASK HOW LONG HE HAS BEEN HERE. SPEECH IS SLURRED EVEN OFF SEDATION. DR. SIMEON WANTS TO START LIBRIUM THROUGH A DOBHOFF. PLACED DOBHOFF AND AWAITING XRAY CONFIRMATION. GAVE A DOSE OF HYDRALAZINE FOR HTN WITH GOOD RESULTS.
--- NOTE | 2020-10-19 21:46 | NUR ---
SHIFT ASSESSMENT ASSUMED CARE OF PT @ 1900. REPORT RECV'D FROM ISABELL RAM. PT ALERT AND ORIENTED TO SELF, FOLLOWS SIMPLE COMMANDS BUT PULLS AT LINES AND CLOTHES. ON 2-3LPM O2 VIA NC. CURRENTLY ON PRECEDEX, WILL TITRATE NEEDED. DOBHOFF PLACEMENT CONFIRMED BY DR. SIMEON, PO MEDS GIVEN THROUGH DOBHOFF. CORDON CATH PATENT DRAINING TO GRAVITY. WILL CONTINUE TO MONITOR CIWA, CURRENTLY NO OTHER MEDS NEEDED.
[2020-10-20 04:21] LABS: BASOPHILS ABSOLUTE AUTO 0.06 K/mm3 (0.00-0.23); BASOPHILS PERCENT AUTO 1 % (0-2); EOSINOPHILS ABSOLUTE AUTO 0.28 K/mm3 (0.00-0.68); EOSINOPHILS PERCENT AUTO 3 % (0-6); Hematocrit 39.7 % (37.0-53.0); Hemoglobin 13.7 g/dL (13.5-17.5); IMMATURE GRAN ABSOLUTE AUTO 0.02 K/mm3 (0.00-0.10); IMMATURE GRAN PERCENT AUTO 0 % (0-1); LYMPHOCYTES ABSOLUTE AUTO 3.17 K/mm3 (0.84-5.20); LYMPHOCYTES PERCENT AUTO 33 % (21-46); MONOCYTES ABSOLUTE AUTO 0.72 K/mm3 (0.16-1.47); MONOCYTES PERCENT AUTO 7 % (4-13); Mean Corpuscular HGB 33.6 pg (26.0-34.0); Mean Corpuscular HGB Conc 34.5 g/dL (31.5-36.5); Mean Corpuscular Volume 97 fL (80-100); Mean Platelet Volume 10.2 fL (9.1-12.4); NEUTROPHILS ABSOLUTE AUTO 5.44 K/mm3 (1.96-9.15); NEUTROPHILS PERCENT AUTO 56 % (41-73); Platelet Count 149 K/mm3 (150-400); RDW Coefficient Variation 12.6 % (11.7-14.2); RDW Standard Deviation 45.4 fL (35.1-46.3); Red Blood Cell Count 4.08 M/mm3 (4.30-5.90); White Blood Cell Count 9.69 K/mm3 (4.00-11.30)
[2020-10-20 04:45] LABS: Anion Gap 4 mmol/L (6-16); Blood Urea Nitrogen 8 mg/dL (8-24); Bun/Creatinine Ratio 10.7 (12.0-20.0); CO2, Blood 27 mmol/L (21-32); Calcium, Blood 8.3 mg/dL (8.5-10.1); Chloride, Blood 111 mmol/L (98-108); Creatinine, Blood 0.75 mg/dL (0.60-1.20); Glomerular Filtration Rate >60 (60-); Glucose, Blood 94 mg/dL (70-99); Magnesium, Blood 1.9 mg/dL (1.6-2.4); Phosphorus, Blood 2.8 mg/dL (2.5-4.9); Potassium, Blood 3.8 mmol/L (3.5-5.5); Sodium, Blood 142 mmol/L (136-145)
--- NOTE | 2020-10-20 06:23 | NUR ---
SHIFT SUMMARY PT CONTINUES TO BE ON PRECEDEX, SEE FLOWSHEET FOR TITRATION. PT SEEMS TO BE MORE CALM AND COOPERATIVE THIS AM, INQUIRING TO WHY HE IS AT THE HOSPITAL AND HOW HE ARRIVED HERE EVEN THOUGH HE QUICKLY FORGETS WHAT THIS NURSE DISCUSSES WITH HIM. NO OTHER SIGNIFICANT CHANGES IN PT CONDITION, CIWA REMAINED BELOW 6 T/O THE NIGHT. WILL CONTINUE TO MONITOR.
--- NOTE | 2020-10-20 10:26 | NUR ---
TUBE FEEDING STARTED PER ORDERS.
--- NOTE | 2020-10-20 11:47 | NUR ---
PT PASSED BEDSIDE SWALLOW EVAL. HE IS ABLE TO STAY ALERT AND FOLLOW COMMANDS TO CLEAR THROAT, COUGH, AND SAY AHHH. STRONG COUGH AND MANAGING SECRETIONS. WILL TRY MEC SOFT LUNCH TRAY PER DR. SIMEON. WILL KEEP DOBHOFF IN PLACE INCASE IT IS NEEDED FOR LIBRIUM ADMINISTRATION.
--- NOTE | 2020-10-20 18:15 | NUR ---
SUMMARY PT HAS BEEN ON PRECEDEX TODAY FOR ETOH WITHDRAWL SYMPTOMS. FIRST SENTENCE OUT OF PT'S MOUTH THIS AM WAS "IF YOU GAVE ME A BEER I WOULD BE OK". HAS BEEN IMPULSIVE. CONSTANTLY PICKING AT LINES AND LINENS EITHER LOOKING FOR GLASSES OR HIS MONEY. SEE CIWA DOCUMENTATION. SPEECH IS SLURRED AND NON SENSICAL MOST OF THE TIME. SISTER THAT CAME IN TO SEE PT TODAY SAID THAT THIS HAS BEEN HIS BASELINE FOR THE LAST YEAR. WAS UP TO CHAIR WITH LIFT FOR A FEW HOURS TODAY. HAD TO PLACE IN CRISTA VEST BECAUSE HE WILL CONSTANTLY TRY TO GET UP AND IS NOT STEADY ON FEET. STARTED ON TUBE FEED THROUGH DOBHOFF TODAY. GIVING SCHEDULED LIBRIUM THROUGH DOBHOFF. NO OTHER CHANGES THIS SHIFT.
--- NOTE | 2020-10-20 19:55 | NUR ---
SHIFT ASSESSMENT ASSUMED CARE OF PT @ 1900, REPORT RECV'D FROM ISABELL RAM. PT ALERT TO PERSON, SITTING UPRIGHT IN BED WITH CRISTA VEST ON PICKING AT DRAW SHEET. PRECEDEX GTT INFUSING, SEE FLOWSHEET. DOBHOFF c TF INFUSING AT GOAL RATE. CORDON CATH PATENT, DRAINING TO GRAVITY. PT DENIES ANY COMPLAINTS AT THIS TIME. CURRENT CIWA <8, WILL CONTINUE TO MONITOR.
--- NOTE | 2020-10-20 23:56 | NUR ---
UPDATE AROUND 2129 AFTER ADMINSTERING MEDICATIONS TO ANOTHER PT, THIS NURSE ROUNDED TO CHECK ON PT. PT WAS SITTING UPRIGHT IN BED WITH BLOOD COMING OUT OF HIS CORDON CATHETER AND DOBHOFF IN HIS HAND. UPON FURTHER ASSESSMENT IT BECAME EVIDENT THAT THE PT HAD PULLED ON THE CATHETER. THIS NURSE ATTEMPTED TO INFLATE/ DEFLATE THE CATHETER WITH NO SUCCESS. CHARGE NURSE WAS NOTIFIED WELL DR SIMEON. ORDERS PLACED FOR ABDOMINAL CT. WILL CONTINUE TO MONITOR.
--- NOTE | 2020-10-21 00:15 | NUR ---
DR SIMEON WAS NOTIFIED BY PT PRIMARY RN, Marta GUTIERREZ, RN RE PT HAVING PULLED ON CORDON CATH. DR SIMEON CONSULTED VIA [facility] TRANSFER COORD W UROLOGY FOR ADVISEMENT. DR SIMEON CALLED BACK, AND ASKED ME TO TRY TO PUSH CORDON IN, THEN TO CUT THE CORDON VALVE PORT CLOSE TO THE PT. I AGAIN, TRIED TO IRRIGATE THE CORDON W STERILE TECHNIQUE, ONLY SMALL AMT OF BLOODY URINE, NO CLOTS. WHEN CORDON WAS RECONNECTED, THE 25ML USED FOR IRRIGATION WAS BLOODY WO CLOTS AND DRAINED IN CORDON TUBING. BALLOON PORT WAS CUT INSTRUCTED, UNABLE TO PULL CATHETER. DR SIMEON NOTIFIED. SHE WILL INITIATE TRANSFER. SHE REQUESTED ME TO NOTIFY HOSPITALIST, DR SANTORO WITH CURRENT PLAN.
--- NOTE | 2020-10-21 05:51 | NUR ---
TRANSFER NOTE PT TRANSFERRED TO [facility] ICU FOR UROLOGY VIA [facility]. REPORT GIVEN TO ISABELL ORDONEZ. PTS MEDICATIONS, CLOTHING AND GLASSES SENT WITH EMS. PTS SISTER GRADY BLANKENSHIP AND SON KELLY WERE NOTIFIED OF TRANSFER AND UPDATED TO ROOM NUMBER PRIOR TO TRANSPORT.
== END 2020-10-21 05:20 | disposition short-term general hospital (02) | DRG 91 ==
LOC: ER 19:55 → ICUE 22:28 → ICUW 22:28 → ICUE 22:45
PROVIDERS: Emergency Medicine; Internal Medicine Critical Care Medicine; Internal Medicine Pulmonary Disease; Nurse Practitioner Acute Care; ADMIT Internal Medicine
PROC: 0BH17EZ Insertion of Endotracheal Airway into Trachea, Via Natural or Artificial Opening (ICD-10-PCS; principal; 2020-10-16)
PROC: 5A1945Z Respiratory Ventilation, 24-96 Consecutive Hours (ICD-10-PCS; 2020-10-16)
DX: G92 Toxic encephalopathy (principal); J96.01 Acute respiratory failure with hypoxia; J69.0 Pneumonitis due to inhalation of food and vomit; F10.139 Alcohol abuse with withdrawal, unspecified; D69.6 Thrombocytopenia, unspecified; R56.9 Unspecified convulsions; F19.10 Other psychoactive substance abuse, uncomplicated; R94.31 Abnormal electrocardiogram [ECG] [EKG]; F15.10 Other stimulant abuse, uncomplicated; G47.00 Insomnia, unspecified; I10 Essential (primary) hypertension; M19.90 Unspecified osteoarthritis, unspecified site; K21.9 Gastro-esophageal reflux disease without esophagitis; F17.210 Nicotine dependence, cigarettes, uncomplicated; Z98.890 Other specified postprocedural states; Z87.820 Personal history of traumatic brain injury
CPT/HCPCS: 31500; 31720; 36415; 36600; 51702; 70450; 71045; 72192; 80048; 80053; 81001; 82140; 82550; 82803; 82947; 83735; 83930; 84100; 84484; 85025; 85610; 93005; 93010; 94002; 94003; 96365-59; 96366-59; 96367-59; 96368; 96375-59; 99285-25; A9270; G0480; J0330; J0360; J1650; J2060; J2543; J2704; J3010; J3411; J3475; J3480; J7030; J7042; J7050; J7070

== ENCOUNTER → 2022-05-15 | Outpatient (CLI) | payer OTHER ==
[~2022-05-15] MED LIST changes: +MELO7.5 PO
[2022-05-15 05:43] LABS: Hematocrit 39.6 % (37.0-53.0); Mean Corpuscular HGB 32.3 pg (26.0-34.0); Mean Corpuscular HGB Conc 35.4 g/dL (31.5-36.5); Mean Corpuscular Volume 91 fL (80-100); Mean Platelet Volume 10.2 fL (9.1-12.4); Platelet Count 222 K/mm3 (150-400); RDW Coefficient Variation 12.5 % (11.7-14.2); RDW Standard Deviation 42.2 fL (35.1-46.3); Red Blood Cell Count 4.34 M/mm3 (4.30-5.90); White Blood Cell Count 11.05 K/mm3 (4.00-11.30)
[2022-05-15 05:58] LABS: Calcium, Blood 8.5 mg/dL (8.5-10.1); Creatinine, Blood 0.68 mg/dL (0.60-1.20); Magnesium, Blood 1.8 mg/dL (1.6-2.4); Potassium, Blood 3.8 mmol/L (3.5-5.5)
== END ==
LOC: LAB RH 05:35 → EDSTATUS 12:22
PROVIDERS: Internal Medicine
DX: I10 Essential (primary) hypertension (principal); R26.2 Difficulty in walking, not elsewhere classified; G89.4 Chronic pain syndrome; K21.9 Gastro-esophageal reflux disease without esophagitis; M62.81 Muscle weakness (generalized); G47.00 Insomnia, unspecified
CPT/HCPCS: 80048; 83735; 85027